=== PATIENT | female | born 1985 | race African-American/Black ===

== ENCOUNTER 2019-07-05 22:08 | Emergency (ER) | payer MEDICAID, SELFPAY ==
[2019-07-05] MEDS ORDERED: Ibuprofen 800 MG TAB ONE (22:24)
== END 2019-07-05 22:35 | disposition home or self-care (01) ==
LOC: NAV ERS 22:08
DX: M62.838 Other muscle spasm (principal); R07.89 Other chest pain; F17.210 Nicotine dependence, cigarettes, uncomplicated
CPT/HCPCS: 93005

== ENCOUNTER 2020-01-05 05:00 | Emergency (ER) | payer OTHER ==
[2020-01-05] MEDS ORDERED: diphenhydrAMINE 25 MG CAP ONE (05:49)
[2020-01-05] MEDS ORDERED: Prochlorperazine 10 MG/2 ML VIAL ONE (05:49)
[2020-01-05] MEDS ORDERED: diphenhydrAMINE 50 MG/ML VIAL ONE (05:49)
[2020-01-05] MEDS ORDERED: Sodium Chloride 0.9% 1,000 ML ONE (05:49)
[2020-01-05] MEDS ORDERED: Ketorolac Tromethamine 30 MG/ML VIAL ONE (05:49)
== END 2020-01-05 07:02 | disposition home or self-care (01) ==
LOC: NAV ERS 05:00
DX: R51.9 Headache, unspecified (principal); F17.210 Nicotine dependence, cigarettes, uncomplicated
CPT/HCPCS: 96365; 96375; J0780; J1200; J1885; J7050; Q0163

== ENCOUNTER 2020-11-01 08:53 | Emergency (ER) | payer SELFPAY ==
[2020-11-01 17:16] LABS: SARS-CoV-2 PCR by NAA Not Detected (NotDetected)
== END 2020-11-01 09:40 | disposition home or self-care (01) ==
LOC: NAV ERS 08:53
DX: J02.9 Acute pharyngitis, unspecified (principal); Z20.822 Contact with and (suspected) exposure to COVID-19; F17.210 Nicotine dependence, cigarettes, uncomplicated
CPT/HCPCS: 87081; 87430; 99283; U0003; U0005

== ENCOUNTER 2021-11-21 17:34 | Emergency (ER) | payer SELFPAY ==
[2021-11-21] MEDS ORDERED: traMADol HCl 50 MG TAB ONE (18:00)
== END 2021-11-21 18:45 | disposition home or self-care (01) ==
LOC: NAV ERS 17:34
DX: M25.511 Pain in right shoulder (principal); F17.210 Nicotine dependence, cigarettes, uncomplicated

== ENCOUNTER 2022-04-17 19:33 | Emergency (ER) | payer SELFPAY ==
[2022-04-17] MEDS ORDERED: Ketorolac Tromethamine 30 MG/ML VIAL ONE (20:04)
== END 2022-04-17 21:10 | disposition home or self-care (01) ==
LOC: NAV ERS 19:33
DX: M25.531 Pain in right wrist (principal); F17.210 Nicotine dependence, cigarettes, uncomplicated
CPT/HCPCS: 96372; J1885

== ENCOUNTER 2022-07-20 11:50 | Emergency (ER) | payer SELFPAY ==
[2022-07-20] MEDS ORDERED: Lidocaine Viscous Sol 2% 15 ml UD Cup ONE (12:19)
[2022-07-20] MEDS ORDERED: Bupivacaine 0.5% 10 ML VIAL ONE (12:19)
== END 2022-07-20 13:02 | disposition home or self-care (01) ==
LOC: NAV ERS 11:50
DX: K08.89 Other specified disorders of teeth and supporting structures (principal); F17.210 Nicotine dependence, cigarettes, uncomplicated
CPT/HCPCS: 64400; J3490

== ENCOUNTER 2023-01-28 21:59 | Emergency (ER) | payer OTHER ==
[2023-01-28] MEDS ORDERED: Naproxen 500 MG TAB ONE (22:36)
== END 2023-01-28 22:08 | disposition home or self-care (01) ==
LOC: NAV ERS 21:59
DX: J02.9 Acute pharyngitis, unspecified (principal); G56.02 Carpal tunnel syndrome, left upper limb; F17.210 Nicotine dependence, cigarettes, uncomplicated
CPT/HCPCS: 87081; 87430; 99283

== ENCOUNTER 2023-04-04 18:13 | Emergency (ER) | payer OTHER ==
[2023-04-04] MEDS ORDERED: predniSONE 20 MG TAB ONE (18:55)
== END 2023-04-04 19:01 | disposition home or self-care (01) ==
LOC: NAV ERS 18:13
DX: G56.03 Carpal tunnel syndrome, bilateral upper limbs (principal); F17.210 Nicotine dependence, cigarettes, uncomplicated
CPT/HCPCS: 99283; J7512

== ENCOUNTER 2024-01-29 23:14 | Emergency (ER) | payer MEDICAID, OTHER, SELFPAY ==
[2024-01-29] MEDS ORDERED: Ketorolac Tromethamine 60 MG/2 ML VIAL ONE (23:39)
[2024-01-29] MEDS ORDERED: predniSONE 20 MG TAB ONE (23:39)
== END 2024-01-29 23:50 | disposition home or self-care (01) ==
LOC: NAV ERS 23:14
DX: G56.03 Carpal tunnel syndrome, bilateral upper limbs (principal); F17.210 Nicotine dependence, cigarettes, uncomplicated
CPT/HCPCS: 96372; 99283; J1885; J7512

== ENCOUNTER 2024-12-04 10:07 | Emergency (ER) | payer OTHER | END 2024-12-04 10:46 | disposition home or self-care (01) | LOC: NAV ERS 10:07 | DX: S61.210A Laceration without foreign body of right index finger without damage to nail, initial encounter (principal); R03.0 Elevated blood-pressure reading, without diagnosis of hypertension; F12.10 Cannabis abuse, uncomplicated; F17.210 Nicotine dependence, cigarettes, uncomplicated; W26.8XXA Contact with other sharp object(s), not elsewhere classified, initial encounter | CPT/HCPCS: 12001; 99282 ==